=== PATIENT | male | born 1955 | race Caucasian/White ===

== ENCOUNTER 2023-04-06 10:42 | Emergency (ER) | payer BC, OTHER ==
[2023-04-06 13:16] VITALS: BP 145/98; PULSE 84; RESP 18; TEMP 98.3; BMI 24.3
== END 2023-04-06 11:42 | disposition home or self-care (01) ==
LOC: FER 10:42
DX: K62.5 Hemorrhage of anus and rectum (principal); L29.9 Pruritus, unspecified; K64.9 Unspecified hemorrhoids
CPT/HCPCS: 99282-25